=== PATIENT | female | born 2000 | race African-American/Black ===

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

== ENCOUNTER 2020-01-26 11:11 | Emergency (ER) | payer BC, SELFPAY ==
--- NOTE | ~2020-01-26 | CT_ITS ---
EXAMINATION: CT abdomen pelvis w con DATE: 01/26/2020 12:40 INDICATION: Right abdominal pain. Nausea. TECHNIQUE: Computed tomography (CT) of the abdomen and pelvis was performed with 100 mL Omnipaque 350 intravenous contrast. Automated exposure control and iterative reconstruction technique were employe d. The dose-length product was 1170.46 mGy-cm. COMPARISON: None. FINDINGS: The visualized portions of the lung bases are clear without pneumonia or pleural effusion. The heart size is normal. No pericardial effusion. The liver, gallbladder, spleen, pancreas, adrenal glands, and kidneys are normal. There are no dilated loops of bowel. The appendix is normal. There ar e no pathologically enlarged lymph nodes. There is no free intraperitoneal fluid. There is mild lumba r spondylosis. IMPRESSION: 1. No etiology for the patient's symptoms. Reviewed, dictated and finalized at location A.
[2020-01-26 11:20] VITALS: BP 141/79; PULSE 58; RESP 18; TEMP 37; O2SAT 100
--- NOTE | 2020-01-26 11:29 | ED.ABDPAIN ---
HPI - Abdominal Pain General Chief Complaint: Abdominal Pain <TAMEKA Hoffman Last Filed: 01/26/20 13:41> Stated Complaint: Abd pain <TAMEKA Hoffman Last Filed: 01/26/20 13:41> Time Seen by Provider: 01/26/20 11:14 <TAMEKA Hoffman Last Filed: 01/26/20 13:41> Source: patient <TAMEKA Hoffman Last Filed: 01/26/20 13:41> Mode of arrival: ambulatory <TAMEKA Hoffman Last Filed: 01/26/20 13:41> Limitations: no limitations <TAMEKA Hoffman Last Filed: 01/26/20 13:41> History of Present Illness HPI narrative: This is a 19 year old female that presents to the ER for abdominal pain x 3 days. Reports intermittent sharp pains around her umbilicus. Reports pain on her right side as well. Associated with nausea. Reports she has had some loose stools the last couple of days. Denies fever, vomiting, hematochezia, dysuria or hematuria. <TAMEKA Hoffman Last Filed: 01/26/20 13:41> Related Data Home Medications: Home Medications Medication Instructions Recorded Confirmed valacyclovir 500 mg PO DAILY 07/29/19 10/26/19 <TAMEKA Hoffman Last Filed: 01/26/20 13:41> Allergies/Adverse Reactions: Allergies Allergy/AdvReac Type Severity Reaction Status Date / Time amoxicillin Allergy Unknown HIVE LIKE Verified 10/26/19 11:52 RASH sulfamethoxazole Allergy Unknown HIVES Verified 10/26/19 11:52 trimethoprim Allergy Unknown HIVES Verified 10/26/19 11:52 <TAMEKA Hoffman Last Filed: 01/26/20 13:41> Review of Systems Review of Systems: Narrative: CONSTITUTIONAL: Denies fever GASTROINTESTINAL: Reports abdominal pain, nausea, diarrhea. Denies vomiting GENITOURINARY: Denies dysuria or hematuria. <TAMEKA Hoffman Last Filed: 01/26/20 13:41> All systems reviewed & are unremarkable except as noted in HPI and below <Etelvina Busby PA-C - Last Filed: 01/26/20 13:41> [facility] Past Medical History Medical History: Medical History (Updated 01/26/20 @ 13:40 by Etelvina Busby PA-C) History of herpes genitalis <Etelvina Busby PA-C - Last Filed: 01/26/20 13:41> Social History Social History: Social History (Updated 01/26/20 @ 11:34 by Etelvina Busby PA-C) Smoking status: Never smoker Substance use type: marijuana <Etelvina Busby PA-C - Last Filed: 01/26/20 13:41> Exam Narrative: Exam Narrative: GENERAL: Well-appearing, obese, and in no acute distress. HEAD: Normocephalic, atraumatic. EYES: EOMI. CHEST: Clear to auscultation. No respiratory distress. No wheezes rales or rhonchi HEART: Regular rate and rhythm. No murmur heard. Normal peripheral pulses. ABDOMEN: Soft, nondistended, normal active bowel sounds. Tender to palpation of the RLQ, without guarding EXTREMITIES: Normal range of motion. No edema. SKIN: Warm, dry, no rash. NEURO: No focal deficits. Alert and oriented x3. PSYCH: Normal mood and affect <Etelvina Busby PA-C - Last Filed: 01/26/20 13:41> Course Vital Signs Vital signs: Vital Signs Temperature 98.6 F 01/26/20 11:20 Pulse Rate 58 L 01/26/20 11:20 Respiratory Rate 18 01/26/20 11:20 Blood Pressure 141/79 H 01/26/20 11:20 Pulse Oximetry 100 01/26/20 11:20 Temperature 98.6 F 01/26/20 11:20 Pulse Rate 68 01/26/20 14:04 Respiratory Rate 16 01/26/20 14:04 Blood Pressure 158/84 H 01/26/20 14:04 Pulse Oximetry 97 01/26/20 14:04 <Etelvina Busby PA-C - Last Filed: 01/26/20 13:41> Vital Signs Temperature 98.6 F 01/26/20 11:20 Pulse Rate 58 L 01/26/20 11:20 Respiratory Rate 18 01/26/20 11:20 Blood Pressure 141/79 H 01/26/20 11:20 Pulse Oximetry 100 01/26/20 11:20 Temperature 98.6 F 01/26/20 11:20 Pulse Rate 68 01/26/20 14:04 Respiratory Rate 16 01/26/20 14:04 Blood Pressure 158/84 H 01/26/20 14:04 Pulse Oximetry 97 01/26/20 14:04 <Kelsy Teague MD - Last Filed: 01/26/20 19
[2020-01-26 11:43] LABS: Basophils Percent Auto 0.5 % (0.2-1.2); Eosinophils Absolute Auto 0.2 K/mm3 (0-0.3); Eosinophils Percent Auto 3.6 % (0-4.4); Hematocrit 39.3 % (37.0-47.0); Hemoglobin 12.7 g/dL (12.0-15.0); Immature Granulocyte Absolute 0.01 K/mm3 (0.00-0.031); Immature Granulocyte Percent A 0.2 % (0-0.5); Lymphocytes Absolute Auto 2.73 K/mm3 (0.9-3.2); Lymphocytes Percent Auto 49.2 % (18.3-44.2); Mean Corpuscular HGB Conc 32.3 g/dl (32-36); Mean Corpuscular Hemoglobin 29.4 pg (26-34); Mean Platelet Volume 11.5 fl (7.4-10.4); Monocytes Absolute Auto 0.5 K/mm3 (0.1-0.6); Monocytes Percent Auto 8.5 % (2.6-8.5); Neutrophils Absolute Auto 2.1 K/mm3 (1.3-6.7); Platelet Count Result 308 k/mm3 (150-375); Red Blood Count 4.32 M/mm3 (4.2-5.4); Red Cell Distribution Width 13.5 % (11.5-14.5); White Blood Count 5.6 K/mm3 (4.5-10.0)
[2020-01-26] MEDS: SODIUM CHLORIDE 0.9% IV 500 ML 999 ML IV CONT (11:48)
[2020-01-26] MEDS: FAMOTIDINE 20 MG/2 ML VIAL IV PUSH (11:49)
[2020-01-26 11:57] LABS: Add Urine Microscopic? NO; Appearance Urine Clear (Clear); Bilirubin Urine Negative (Negative); Blood Urine Negative (Negative); Color Urine Yellow (Yellow); Glucose Urine UA Negative (Negative); Ketones Urine Negative (Negative); Leukocyte Esterase Ur Negative LEU/UL (Negative); Nitrate Urine Negative (Negative); Protein Urine Negative (Negative); Specific Grav Ur 1.024 (1.001-1.035); Urobilinogen Urine Negative mg/dL (<2.0)
[2020-01-26 12:15] LABS: Alanine Aminotransferase 10 U/L (4-35); Albumin Level 4.2 g/dL (3.7-5.6); Alkaline Phosphatase 82 U/L (45-116); Aspartate Amino Transferase 21 U/L (14-36); Bilirubin,Total 0.6 mg/dL (0.2-1.3); Blood Urea Nitrogen 11 mg/dL (8-21); Calcium 9.2 mg/dL (8.9-10.7); Carbon Dioxide 28 mmol/L (22-30); Chloride 103 mmol/L (98-107); Estimated Glomerular Filt Rate > 60; Glucose 96 mg/dL (65-105); Lipase 62 U/L (23-300); Potassium 3.8 mmol/L (3.4-5.0); Sodium 135 mmol/L (134-143)
[2020-01-26 14:04] VITALS: BP 158/84; PULSE 68; RESP 16; O2SAT 97
== END 2020-01-26 14:00 | disposition home or self-care (01) ==
PROVIDERS: Physician Assistant; Emergency Provider Emergency Medicine
DX: R10.33 Periumbilical pain (principal)
CPT/HCPCS: 36415; 74177; 80053; 81003; 81025; 83690; 85025; 96365; 96375; 99284; J0131; J7040; Q9967

== ENCOUNTER 2021-01-25 14:28 | Outpatient (CLI) | payer BC, SELFPAY ==
[2021-01-25 16:26] LABS: Hepatitis B Surface Antigen Negative (Negative)
[2021-01-25 16:42] LABS: HIV 1/2 Ab P24 Ag Result Negative (Negative)
[2021-01-25 16:43] LABS: Hepatitis C Virus Antibody Negative (Negative)
[2021-01-26 10:20] LABS: Rapid Plasma Reagin Non-Reactive (NonReactive)
== END 2021-01-25 14:29 | disposition home or self-care (01) ==
PROVIDERS: PCP Nurse Practitioner Family; Visit Provider Obstetrics & Gynecology
DX: Z11.3 Encounter for screening for infections with a predominantly sexual mode of transmission (principal)
CPT/HCPCS: 36415; 86592; 86703; 86803; 87340; G0432

== ENCOUNTER 2021-09-21 11:05 | Emergency (ER) | payer BC, SELFPAY ==
[2021-09-21 11:15] VITALS: BP 135/86; PULSE 85; RESP 16; TEMP 35.9; O2SAT 100
--- NOTE | 2021-09-21 11:18 | ED.URI ---
HPI - URI/Sore Throat General Chief Complaint: Upper Respiratory Infection Stated Complaint: Cough Time Seen by Provider: 09/21/21 11:35 Source: patient and RN notes reviewed Mode of arrival: ambulatory Limitations: no limitations History of Present Illness HPI Narrative: 21-year-old female presents with concern for cough, body aches, stuffy nose and chest tightness. She reports a history of asthma, has not needed albuterol inhaler for quite some time. Reports her sister tested positive for Covid yesterday. She denies any [id number] intervention. MD elicited complaint: cough Related Data Allergies Allergy/AdvReac Type Severity Reaction Status Date / Time amoxicillin Allergy Unknown HIVE LIKE Verified 04/25/21 09:59 RASH sulfamethoxazole Allergy Unknown HIVES Verified 04/25/21 09:59 trimethoprim Allergy Unknown HIVES Verified 04/25/21 09:59 Penicillins Allergy Unknown Verified 04/25/21 09:59 Review of Systems Review of Systems: CONSTITUTIONAL: Denies malaise, chills, sweats, or fever. EYES: Denies visual changes, redness, or discharge. ENT: Reports congestion. Denies nasal congestion, sinus pain, otalgia and sore throat. CARDIOVASCULAR: Denies chest pain, palpitations, or edema. RESPIRATORY: Reports cough. Denies dyspnea. GASTROINTESTINAL: Denies abdominal pain, nausea, vomiting, diarrhea SKIN: Denies rash or itching. MUSCULOSKELETAL: Reports myalgia. NEUROLOGIC: Denies headache. All systems reviewed & are unremarkable except as noted in HPI and below PMFSH Past Medical History Medical History HSV (herpes simplex virus) infection Type 2 Family History Family History Father Asthma Diabetes mellitus Hypertension Heart problem Mother Cancer Diabetes mellitus Hypertension Anxiety Heart problem Sibling Asthma Diabetes mellitus Anxiety Social History Social History Smoking status: Never smoker Alcohol intake: current Substance use: current Substance use type: marijuana Comments At time of signature, agree with nursing past medical, surgical, social and family history. There is no relevant family history pertinent to the presenting complaint Exam Narrative: GENERAL: Well-appearing, well-nourished, and in no acute distress. HEAD: Normocephalic EYES: PERRLA, conjunctivae clear ENT: Nares clear, clear discharge. Mucous membranes moist. TM pearly logan with dull light reflex bilaterally; no tragal tenderness. Oropharynx not erythematous without lesions. Tonsils not enlarged and without exudate, no drooling, no hoarseness, no trismus, uvula midline. NECK: Supple. No lymphadenopathy CHEST: Clear to auscultation, breath sounds equal. No wheezing, rhonchi, rales, or stridor. No respiratory distress, speaks in full sentences. HEART: Regular rate and rhythm. No murmur heard. SKIN: Warm, dry, no rash. NEURO: Alert and oriented x3. PSYCH: Normal mood and affect Course Course Emergency Course: Patient is aware of diagnosis, understands and agrees to treatment plan. Anticipatory guidance given. Patient agrees to follow-up as directed and is aware of reasons to seek care at the emergency department. Portions of this record may have been created with voice recognition software Level of Care: Express Care Visit Vital Signs Vital signs: Vital Signs Temperature 96.7 F L 09/21/21 11:15 Pulse Rate 85 09/21/21 11:15 Respiratory Rate 16 09/21/21 11:15 Blood Pressure 135/86 09/21/21 11:15 Pulse Oximetry 100 09/21/21 11:15 Temperature 96.7 F L 09/21/21 11:15 Pulse Rate 85 09/21/21 11:15 Respiratory Rate 16 09/21/21 11:15 Blood Pressure 135/86 09/21/21 11:15 Pulse Oximetry 100 09/21/21 11:15 Reviewed. MDM - URI/Sore Throat MDM Narrative Medical decision making narrative: Differenti
== END 2021-09-21 11:59 | disposition home or self-care (01) ==
PROVIDERS: Emergency Provider Nurse Practitioner; PCP Nurse Practitioner Family
DX: U07.1 COVID-19 (principal)
CPT/HCPCS: 87426; 99213; C9803; G0463

== ENCOUNTER 2021-12-02 06:14 | Emergency (ER) | payer BC, SELFPAY ==
--- NOTE | ~2021-12-02 | US_ITS ---
EXAMINATION: US abdomen limited DATE: 12/02/2021 07:30 INDICATION: Right upper quadrant abdominal pain. Nausea and vomiting. TECHNIQUE: Multiple grayscale and Doppler ultrasound images of the abdomen were obtained. COMPARISON: None FINDINGS: The pancreatic head and body are normal in appearance. The pancreatic tail is obscured by shadowing gas in the stomach. Liver has normal echogenicity and contour, with a smooth surface. No liver lesion identified. No intrahepatic biliary duct dilation suspected. Portal venous flow was seen in the hepa topetal, normal direction and has normal Doppler waveform. Visualized proximal to mid inferior vena c maria de jesus is normal. The gallbladder is normal in appearance. There is no cholelithiasis. The common bile duct measures 5 mm, which is normal. Sonographic Cruz sign was reported as negative by the sonograp her.Visualized portion of the right kidney demonstrates normal echogenicity and contour with no hydro nephrosis. IMPRESSION: 1. Normal right upper quadrant ultrasound. Reviewed, dictated and finalized at location A.
[2021-12-02 06:20] VITALS: BP 153/96; PULSE 70; RESP 18; TEMP 36.6; O2SAT 99
[2021-12-02 07:05] LABS: Basophils Percent Auto 0.4 % (0.2-1.2); Eosinophils Absolute Auto 0.1 K/mm3 (0-0.3); Eosinophils Percent Auto 1.4 % (0-4.4); Hematocrit 39.5 % (37.0-47.0); Hemoglobin 12.6 g/dL (12.0-15.0); Immature Granulocyte Absolute 0.01 K/mm3 (0.00-0.031); Immature Granulocyte Percent A 0.2 % (0-0.5); Lymphocytes Absolute Auto 2.87 K/mm3 (0.9-3.2); Lymphocytes Percent Auto 56.3 % (18.3-44.2); Mean Corpuscular HGB Conc 31.9 g/dl (32-36); Mean Corpuscular Hemoglobin 29.2 pg (26-34); Mean Corpuscular Volume 91.6 fl (80-100); Mean Platelet Volume 11.2 fl (7.4-10.4); Monocytes Absolute Auto 0.6 K/mm3 (0.1-0.6); Neutrophils Absolute Auto 1.6 K/mm3 (1.3-6.7); Neutrophils Percent Auto 30.7 % (45.5-73.1); Platelet Count Result 252 k/mm3 (150-375); Red Blood Count 4.31 M/mm3 (4.2-5.4); Red Cell Distribution Width 13.3 % (11.5-14.5); White Blood Count 5.1 K/mm3 (4.5-10.0)
[2021-12-02 07:10] LABS: Alanine Aminotransferase 22 U/L (4-35); Albumin Level 4.2 g/dL (3.5-5.1); Alkaline Phosphatase 85 U/L (38-126); Anion Gap 5 mmol/L (8-16); Aspartate Amino Transferase 32 U/L (14-36); Bilirubin,Total 0.4 mg/dL (0.2-1.3); Blood Urea Nitrogen 11 mg/dL (7-17); Calcium 8.8 mg/dL (8.4-10.2); Carbon Dioxide 25 mmol/L (22-30); Chloride 107 mmol/L (98-107); Estimated Glomerular Filt Rate > 60; Glucose 102 mg/dL (65-110); Lipase 50 U/L (23-300); Sodium 137 mmol/L (137-145)
[2021-12-02 07:11] LABS: Add Urine Microscopic? YES; Appearance Urine Cloudy (Clear); Bilirubin Urine Negative (Negative); Blood Urine Negative (Negative); Color Urine Yellow (Yellow); Glucose Urine UA Negative (Negative); Ketones Urine Negative (Negative); Leukocyte Esterase Ur Trace LEU/UL (Negative); Mucus Urine Rare /lpf; Nitrate Urine Negative (Negative); Protein Urine Negative (Negative); RBC Urine 0-2 /hpf (0-2); Specific Grav Ur 1.024 (1.001-1.035); Squamous Epithelial Cell Urine Moderate /hpf (Few)
[2021-12-02 07:13] LABS: Pregnancy On Board Control Positive; Urine Pregnancy Test Negative
[2021-12-02 07:14] LABS: Lactic Acid Reflex 0.6 mmol/L (0.7-2.1)
--- NOTE | 2021-12-02 07:21 | PC.NURSE ---
Report given to Myesha at bedside.
[2021-12-02 07:27] LABS: Beta HCG Quantitative < 2.39 mIU/ML
[2021-12-02] MEDS: ONDANSETRON INJ 4 MG/2 ML VIAL IV PUSH (07:42)
[2021-12-02] MEDS: MORPHINE SULFATE (*CRX) 4 MG/ML INJ IV PUSH (07:42)
[2021-12-02 08:02] VITALS: BP 143/95; PULSE 63; RESP 15; O2SAT 100
[2021-12-02 08:42] VITALS: BP 142/95; PULSE 58; RESP 16; O2SAT 99
== END 2021-12-02 08:45 | disposition home or self-care (01) ==
PROVIDERS: Emergency Medicine; PCP Nurse Practitioner Family
DX: R10.11 Right upper quadrant pain (principal)
CPT/HCPCS: 36415; 76705; 80053; 81001; 81025; 83605; 83690; 84702; 85025; 96374; 96375; 99284; J2270; J2405

== ENCOUNTER 2021-12-14 07:32 | Outpatient (CLI) | payer BC, SELFPAY ==
--- NOTE | ~2021-12-14 | NM_ITS ---
EXAMINATION: NM hepatobiliary wo pharm DATE: 12/14/2021 13:44 INDICATION: Disease of gallbladder COMPARISON: None. TECHNIQUE: 5 mCi Tc-99m mebrofenin (Choletec) was administered intravenously. Scintigraphic images o f the abdomen were obtained for one hour. At the 1 hour time point, the patient drank 8 oz Ensure, an d imaging was continued for 60 minutes. Gallbladder ejection fraction was calculated by the technolog ist. FINDINGS: There is normal clearance of radiotracer from the blood pool. There is homogeneous tracer u ptake by the liver. Activity progresses to the bowel and gallbladder. The gallbladder ejection fract ion (GBEF) is 70%. Note that with this technique, normal GBEF >= 33%. IMPRESSION: 1. Normal hepatobiliary scan. Reviewed, dictated and finalized at location A.
== END 2021-12-14 07:33 | disposition home or self-care (01) ==
PROVIDERS: PCP Nurse Practitioner Family; Visit Provider Nurse Practitioner Family
DX: K82.9 Disease of gallbladder, unspecified (principal)
CPT/HCPCS: 78226; A9537

== ENCOUNTER 2022-10-09 19:39 | Emergency (ER) | payer OTHER, SELFPAY ==
[2022-10-09 19:51] VITALS: BP 135/73; PULSE 85; RESP 16; TEMP 36.3; O2SAT 100
--- NOTE | 2022-10-09 20:10 | ED.URI ---
HPI - URI/Sore Throat General Chief Complaint: Upper Respiratory Infection Stated Complaint: swollen tonsils, sore throat Time Seen by Provider: 10/09/22 20:10 Source: patient, RN notes reviewed and old records reviewed Mode of arrival: ambulatory Limitations: no limitations History of Present Illness HPI Narrative: 22 year old female presents to [facility] care with complaints of sore throat which started this morning and progressively increased in intensity since this morning. Patient reports no cough, no fevers, no ear pain or any headache reported, just sore throat. Patient reports that sister and niece both ill with sore throats also and tested positive for strep 2 days ago. MD elicited complaint: sore throat Pertinent past history: asthma Onset (ago): day(s) (today) Pain scale (0-10): 4 Treatments prior to arrival: none Related Data Allergies Allergy/AdvReac Type Severity Reaction Status Date / Time amoxicillin Allergy Unknown HIVE LIKE Verified 04/25/21 09:59 RASH sulfamethoxazole Allergy Unknown HIVES Verified 04/25/21 09:59 trimethoprim Allergy Unknown HIVES Verified 04/25/21 09:59 Penicillins Allergy Unknown Verified 04/25/21 09:59 Review of Systems Review of Systems: CONSTITUTIONAL: Denies malaise, chills, sweats, or fever. EYES: Denies visual changes, redness, or discharge. ENT: Reports rhinorrhea, congestion,no sinus pain, no otalgia positive for sore throat. CARDIOVASCULAR: Denies chest pain, palpitations, or edema. RESPIRATORY: Reports no cough.? Denies dyspnea. GASTROINTESTINAL: Denies abdominal pain, nausea, vomiting, diarrhea SKIN: Denies rash or itching. MUSCULOSKELETAL: Denies myalgia. NEUROLOGIC: Denies headache. All systems reviewed & are unremarkable except as noted in HPI and below PMFSH Past Medical History Medical History HSV (herpes simplex virus) infection Type 2 Family History Family History Father Asthma Diabetes mellitus Hypertension Heart problem Mother Cancer Diabetes mellitus Hypertension Anxiety Heart problem Sibling Asthma Diabetes mellitus Anxiety Social History Social History Smoking status: Never smoker Alcohol intake: current Substance use: current Substance use type: marijuana Comments At time of signature, agree with nursing past medical, surgical, social and family history. There is no relevant family history pertinent to the presenting complaint Exam Narrative: GENERAL: Well-appearing, well-nourished, and in no acute distress. HEAD: Normocephalic EYES: PERRLA, conjunctivae clear ENT: Nares clear, turbinates edematous and erythematous, clear discharge. Mucous membranes moist. TM pearly logan with dull light reflex bilaterally; no tragal tenderness. Oropharynx erythematous without lesions. Tonsils red enlarged and without exudate, no drooling, no hoarseness, no trismus, uvula midline. NECK: Supple. lymphadenopathy CHEST: Clear to auscultation, breath sounds equal. No wheezing, rhonchi, rales, or stridor. No respiratory distress, speaks in full sentences.SAO2 100% on room air HEART: Regular rate and rhythm. No murmur heard. SKIN: Warm, dry, no rash. NEURO: Alert and oriented x3. PSYCH: Normal mood and affect Course Course Emergency Course: Patient is aware of diagnosis, understands and agrees to treatment plan.? Anticipatory guidance given.? Patient agrees to follow-up as directed and is aware of reasons to seek care at the emergency department. Portions of this record may have been created with voice recognition software Level of Care: Express Care Visit Vital Signs Vital signs: Vital Signs Temperature 36.3 C L 10/09/22 19:51 Pulse Rate 85 10/09/22 19:51 Respiratory Rate 16 10/09/22 19:51 Blood Pressure 135/73
== END 2022-10-09 20:23 | disposition home or self-care (01) ==
PROVIDERS: Emergency Provider Registered Nurse; PCP Nurse Practitioner Family
DX: J02.0 Streptococcal pharyngitis (principal)
CPT/HCPCS: 87880; 99213; G0463

== ENCOUNTER 2022-11-19 13:19 | Emergency (ER) | payer OTHER, SELFPAY ==
[2022-11-19 13:27] VITALS: BP 142/90; PULSE 83; RESP 19; TEMP 36.5; O2SAT 100
[2022-11-19 13:41] LABS: Basophils Percent Auto 0.5 % (0.2-1.2); Eosinophils Percent Auto 0.4 % (0-4.4); Hematocrit 40.2 % (37.0-47.0); Hemoglobin 12.8 g/dL (12.0-15.0); Immature Granulocyte Absolute 0.01 K/mm3 (0.00-0.031); Immature Granulocyte Percent A 0.2 % (0-0.5); Lymphocytes Absolute Auto 1.73 K/mm3 (0.9-3.2); Lymphocytes Percent Auto 30.7 % (18.3-44.2); Mean Corpuscular HGB Conc 31.8 g/dl (32-36); Mean Corpuscular Volume 91.2 fl (80-100); Mean Platelet Volume 10.1 fl (7.4-10.4); Monocytes Absolute Auto 0.5 K/mm3 (0.1-0.6); Neutrophils Absolute Auto 3.4 K/mm3 (1.3-6.7); Neutrophils Percent Auto 60.2 % (45.5-73.1); Platelet Count Result 327 k/mm3 (150-375); Red Blood Count 4.41 M/mm3 (4.2-5.4); Red Cell Distribution Width 13.6 % (11.5-14.5); White Blood Count 5.6 K/mm3 (4.5-10.0)
[2022-11-19 13:51] LABS: Alanine Aminotransferase 18 U/L (6-35); Albumin Level 4.5 g/dL (3.5-5.1); Alkaline Phosphatase 89 U/L (38-126); Anion Gap 9 mmol/L (8-16); Aspartate Amino Transferase 23 U/L (14-36); Bilirubin,Total 0.5 mg/dL (0.2-1.3); Blood Urea Nitrogen 11 mg/dL (7-17); Calcium 9.1 mg/dL (8.4-10.2); Carbon Dioxide 22 mmol/L (22-30); Chloride 108 mmol/L (98-107); Estimated Glomerular Filt Rate > 60; Glucose 105 mg/dL (65-110); Lipase 36 U/L (23-300); Potassium 3.8 mmol/L (3.4-5.0); Sodium 139 mmol/L (137-145)
[2022-11-19 13:54] VITALS: BP 150/78; BP 154/101; BP 168/96; PULSE 63; PULSE 72; PULSE 76
[2022-11-19 13:59] VITALS: BP 168/96; PULSE 75; RESP 18; O2SAT 98
--- NOTE | 2022-11-19 14:10 | ED.NAVMDI ---
HPI - Nausea/Vomiting/Diarrhea General Chief complaint: Nausea/Vomiting/Diarrhea Stated complaint: N/V Time Seen by Provider: 11/19/22 13:53 History of Present Illness HPI Narrative: Patient is a 22 year old female here for evaluation of nausea and vomiting over the past several hours. Patient states she is unable to tolerate any p.o.. She has had values last night. Positive sick contact, patient's niece presents experiencing similar symptoms. She reports abdominal cramping when she vomits. No fevers or chills, diarrhea or constipation. No history of abdominal surgeries. Related Data Allergies Allergy/AdvReac Type Severity Reaction Status Date / Time amoxicillin Allergy Unknown HIVE LIKE Verified 11/19/22 13:54 RASH sulfamethoxazole Allergy Unknown HIVES Verified 11/19/22 13:54 trimethoprim Allergy Unknown HIVES Verified 11/19/22 13:54 Penicillins Allergy Unknown Verified 11/19/22 13:54 Review of Systems Review of Systems: Gen.: Denies fevers or chills Eyes: Denies eye pain or visual change ENT: Denies congestion Respiratory: Denies shortness of breath or cough CV: Denies chest pain or palpitations GI: Reports abdominal cramping nausea and vomiting denies burning, urgency, frequency or hematuria Musculoskeletal: Denies back pain or muscle pain Neuro: Denies numbness, tingling, weakness or focal weakness Skin: Denies rash Except as documented, all other systems reviewed and negative PMFSH Past Medical History Medical History HSV (herpes simplex virus) infection Type 2 Family History Family History Father Asthma Diabetes mellitus Hypertension Heart problem Mother Cancer Diabetes mellitus Hypertension Anxiety Heart problem Sibling Asthma Diabetes mellitus Anxiety Social History Social History Smoking status: Never smoker Alcohol intake: current Substance use: current Substance use type: marijuana Exam Narrative: APPEARANCE: Well appearing, no pain in distress, well-nourished. Head: Normocephalic and atraumatic. EYES: PERRLA/EOMI, conjunctivae clear NOSE: No nasal drainage EARS: External ear normal in appearance THROAT: Oropharynx is clear. Mucous membranes are moist. NECK: Supple. No adenopathy, no masses. RESPIRATORY: Airway patent, respirations nonlabored. Clear to auscultation bilaterally, no rales, rhonchi, wheezing. CARDIOVASCULAR: Regular rate and rhythm without murmurs, rubs, or gallops. ABDOMINAL: Normoactive bowel sounds. Soft, nontender, nondistended. No rebound tenderness or guarding. MUSCULOSKELETAL: Extremities are warm and well-perfused. Moves all extremities well. No edema. NEURO: Normal speech. No focal neurologic deficits. SKIN: Skin is warm and dry. No rashes. PSYCHIATRIC: Normal affect/mood.. Course Vital Signs Vital signs: Vital Signs Temperature 97.7 F 11/19/22 13:27 Pulse Rate 83 11/19/22 13:27 Respiratory Rate 19 11/19/22 13:27 Blood Pressure 142/90 H 11/19/22 13:27 Pulse Oximetry 100 11/19/22 13:27 Oxygen Delivery Room Air 11/19/22 13:27 Temperature 97.7 F 11/19/22 13:27 Pulse Rate 99 11/19/22 17:46 Respiratory Rate 18 11/19/22 17:46 Blood Pressure 168/84 H 11/19/22 17:46 Pulse Oximetry 100 11/19/22 17:46 Oxygen Delivery Room Air 11/19/22 13:27 MDM - Nausea/Vomiting/Diarrhea MDM Narrative Medical decision making narrative: 22-year-old female here for evaluation of nausea and vomiting over the past day onset after eating rallys last evening. Vital signs are normal, no abdominal tenderness on exam. Patient was given fluids, Pepcid, and Zofran with marked improvement of her symptoms, able to tolerate p.o. and feeling much better. Basic labs are unremarkable. Lipase is normal. Urine negative, UA without e
[2022-11-19] MEDS: FAMOTIDINE 20 MG/2 ML VIAL IV PUSH (14:36)
[2022-11-19] MEDS: LACTATED RINGERS 1,000 ML 999 ML IV CONT (14:36)
[2022-11-19] MEDS: ONDANSETRON INJ 4 MG/2 ML VIAL IV PUSH (14:36)
[2022-11-19 16:59] LABS: Appearance Urine Clear (Clear); Bacteria Urine None Seen /hpf; Bilirubin Urine Negative (Negative); Blood Urine Negative (Negative); Color Urine Yellow (Yellow); Glucose Urine UA Negative (Negative); Ketones Urine Negative (Negative); Leukocyte Esterase Ur Negative LEU/UL (Negative); Nitrate Urine Negative (Negative); Non Pathogenic Casts 0-2; Protein Urine 1+ mg/dL (Negative); RBC Urine 0-2 /hpf (0-2); Specific Grav Ur 1.024 (1.001-1.035); Squamous Epithelial Cell Urine None seen /hpf (Few); Urobilinogen Urine 0.2 mg/dL (<2.0); WBC Urine 0-5 /hpf; pH Urine 7.5 (5.0-9.0)
[2022-11-19 17:23] LABS: Add Urine Microscopic? YES
[2022-11-19 17:46] VITALS: BP 168/84; PULSE 99; RESP 18; O2SAT 100
[2022-11-19 17:49] LABS: Pregnancy On Board Control Positive; Urine Pregnancy Test Negative
== END 2022-11-19 17:54 | disposition home or self-care (01) ==
PROVIDERS: Emergency Medicine; Emergency Provider Physician Assistant; PCP Nurse Practitioner Family
DX: K52.9 Noninfective gastroenteritis and colitis, unspecified (principal)
CPT/HCPCS: 36415; 80053; 81001; 81025; 83690; 85025; 96361; 96374; 96375; 99284; J2405; J7120

== ENCOUNTER 2025-01-23 09:04 | Emergency (ER) | payer SELFPAY ==
--- NOTE | ~2025-01-23 | XR_ITS ---
Portable chest x-ray Comparison: None Clinical History: Dizziness Findings: Lungs are clear, without focal consolidation or pleural effusion. Cardiomediastinal silho uette is unremarkable. Bones and soft tissues are unremarkable. Impression: Normal chest. Reviewed, dictated and finalized at location . Impression: Normal chest.
--- OUTSIDE RECORDS SUMMARY | 2025-01-23 09:10 | XMS_ITS | Clinical Summary ---
Author Organization [facility] Address [address] [place] [address] Phone Care Team Providers Care Oven Technician Name Role Phone Nidia Herrera APRN, CNP Primary Care Provider [phone] Active Problems Problem Noted Date Diagnosed Date Adjustment disorder with depressed mood 12/01/19 20 Immunizations Immunization Administration Dates Next Due Covid-19, Mrna, Lnp-s, Pf, 30 Mcg/0.3 Ml Dose (P fizer) 01/03/2021,12/14/2020 Family History Medical History Relation Name Comments ADD / ADHD Father ADD / ADHD Mother Relation Name Status Comments Father Mother Social History Tobacco Use Types Packs/Day Years Used Date Smoking Tobacco: Never Assessed PHQ-2 Answer Date Recorded Total Score - Questions 1-9 7 11/15 Comments Unknown Sex and Gender Information Value Date Recorded Sex Assigned at Not on file Legal Sex Female 10:26 AM CDT Gender Identity Not on file Sexual Orientation Not on file Plan of Treatment Health Maintenance Due Date Last Done Comments Hepatitis C Virus (HCV) Screening 2000 Pap Smear 2021 Influenza Immunization (#1) 05/18/202411/16, 06/30/2013, 06/04/2012, Additional history exists SARS-COV-2 Immunization ( season) 2024 10/04/2022, 01/25/2022, 01/04/2022, Additional history exists Respiratory Syncytial Virus (RSV) Immunization (Adult) (1 - 1-dose 75+ series) 2075 Hepatitis B Immunization Completed 001, 2000, 2000 Pneumococcal Immunization Combined Aged Out 01/31/2001, 2000 No longer eligibl e based on patient's age to complete this topic DTaP/Tdap/Td Immunization Discontinued 2010, 04/28/2005, 04/18/2002, Additional history exists TdaP Immunization Completed 02/17/2011 Human Papillomavirus (HPV) Immunization Completed 10/14/2012, 06/04/2012, 04/03/2012 Meningococcal Immunization (ACWY) Completed 12/06/2016, 10/30/2011 Rotavirus Immunization Aged Out No lo nger eligible based on patient's age to complete this topic Insurance MEDICAID [place] Care Teams Oven Technician Relationship Specialty Start Date End Date Nidia Herrera APRN, CLEARANCE REPRESENTATIVE [address] [place] [address] PCP - General Family Medicine 10/04/22
--- OUTSIDE RECORDS SUMMARY | 2025-01-23 09:10 | XMS_ITS | Data Portability ---
Author Organization [facility] FRITZSonia Address [address] [place] [address] Care Team Providers Care Back Sewer Name Role Phone ZAMORA, NIDIA Primary Care Provider Unavailabl e Assessment No assessment recorded. Plan of Treatment Reminders Order Date Submit Date Provider Last Modified By Organization Details Last Modified Time Details Appointments None recorde d. Lab vaginal pathoge ns panel, KRISTIAN+pro be, vaginal fluid 2023 024 [facility], [address], [address], [place], [address], 4 07:17:13 vaginal pathoge ns panel, KRISTIAN+pro be, vaginal fluid 2022 023 [facility], [address], [address], [place], [address], 3 11:14:29 cytolog y report, thin prep, smear or scrapin g, cervica l or vaginal 2022 023 [facility], [address], [address], [place], [address], 3 11:40:34 rapid SARS CoV 2 Ag, QL IA, respira tory specime n 2022 023 In-Office Order, Internal Use Only DO Not Attach Compendium DO Not Attach Compendium, Do Not Delete/merge, [id number] 3 14:41:21 rapid flu (A+B) 2022 023 In-Office Order, Internal Use Only DO Not Attach Compendium DO Not Attach Compendium, Do Not Delete/merge, [id number] 3 14:41:22 Referral None recorde d. Procedures None recorde d. Surgeries None recorde d. Imaging MRI, thoraci c spine, w/o contras t 2022 023 [email or web address] [facility] (Radiology), [address] [place], [address], 3 11:15:42 Medication Orders NuvaRin g 0.12 mg-0.01 5 mg/24 hr vaginal 2022 023 [facility]/Pharmacy #[id number], [address] [place], [address], 3 12:00:17 Medrol (Michael) 4 mg tablets in a dose pack 2022 023 [facility]/Pharmacy #[id number], [address] [place], [address], 3 11:23:36 triamci nolone acetoni de 0.1 % topical cream 2022 023 [facility]/Pharmacy #[id number], [address] [place], [address], 3 14:14:57 valacyc lovir 500 mg tablet 2022 023 [facility]/Pharmacy #[id number], [address] [place], [address], 3 14:38:54 NuvaRin g 0.12 mg-0.01 5 mg/24 hr vaginal 2022 023 [facility]/Pharmacy #[id number], [address], [place], [address], 14:38:54 Patient TargetsNo targets recorded. Patient Instructions Encounter Date Encounter Id Patient Instructions Last Modified By Organization Details Last Modified Time 10/11/2022 [id number] Quitting Tobacco: Care Instructions [email or web address] Not available 10/11/2022 14:38:52 A healthy lifestyle: care instructions [email or web address] Not available 10/11/2022 14:38:51 05/08/2023 [id number] When You Want to Lose Weight: Care Instructions Not available 05/08/2023 11:37:06 A healthy lifestyle: care instructions Not available 05/08/2023 11:37:06 healthy upper back: exercises Not available 05/08/2023 11:37:06 - Avoid heavy lifting and over-exertion. - Avoid bed-rest do some gentle stretching and continue with normal activities. - Use ice to relieve pain, 15 minutes every 2 4 hours. - Use heat to relax muscles, 15 minutes every 2 4 hours. - Sleep on a firm surface and avoid lying on the sofa. Not available 05/08/2023 22:07:15 Plan pending imaging results. f/u as needed DWP barriers to care: none Not available 05/08/2023 22:07:20 08/13/2023 [id number] A healthy lifestyle: care instructions Not available 08/13/2023 14:41:19 cough: care instructions Not available 08/13/2023 14:41:19 Mucinex and other OTC cold/cough remedies are fine to take, increase fluids and have good handwashing. Get plenty of rest. Not available 08/13/2023 14:42:52 follow up as needed Not available 08/13/2023 14:41:54 08/22/2023 [id number] A healthy lifestyle: care instructions deldredsmith Not available 08/22/2023 12:00:17 Reason for Referral None Reported. Results Created Date Observation Date Name Description Value Unit Range Abnormal Flag Note LastModifiedBy Organization Detail LastModifiedTime 08/13/2008/13/2023 rapid flu (A+B) Flu A negati ve Not Available In-Office Order Internal Use Only DO Not Attach Compendium DO Not Attach Compendium, Do Not Delete/merge, [id number] 08/13/2023 14:20:27 08/13/20 23 08/13/2023 rapid flu (A+B) Flu B negati ve Not Available In-Office Order Internal Use Only DO Not Attach Compendium DO Not Attach Compendium, Do Not Delete/merge, [id number] 08/13/2023 14:20:27 08/13/20 23 08/13/2023 rapid SARS CoV 2 Ag, QL IA, respi rator y speci men rapid SARS CoV 2 Ag, QL IA, respiratory specimen negati ve Not Available In-Office Order Internal Use Only DO Not Attach Compendium DO Not Attach Compendium, Do Not Delete/merge, [id number] 08/13/2023 14:20:25 08/22/20 23 08/23/2023 NUSWA B VAGIN ITIS PLUS (VG+) atopobium vaginae Modera te - 1 score Not Available [facility] ([facility]) [address], [place], [address], 08/24/2023 11:14:29 08/22/20 23 08/23/2023 NUSWA B VAGIN ITIS PLUS (VG+) bvab 2 High - 2 score abnormal Not Available [facility] ([facility]) [address] [facility], [place], [address], 08/24/2023 11:14:29 08/22/20 23 08/23/2023 NUSWA B VAGIN ITIS PLUS (VG+) megasphaera 1 High - 2 score abnormal Calcu late total score by dalton guillen the 3 indiv idual bacte rial vagin osis (BV) marke r score s toget her. Total score is inter prete d as follo ws: Total score 0-1: Indic ates the absen ce of BV. Total score 2: Indet ermin ate for BV. Addit ional clini piper data shoul d be evalu ated to estab deondre cordero osis. Total score 3-6: Indic ates the prese nce of BV. This test was abdiaziz rodriguez and its perfo pattie e bello lópezri stics deter mined by [facility]. It has not been clear ed or appro braden by the Food and Drug Admin istra tion. Not Available [facility] ([facility]) [address] [place], [address], 08/24/2023 11:14:29 08/22/20 23 08/23/2023 NUSWA B VAGIN ITIS PLUS (VG+) preeti albicans, KRISTIAN Negati ve negati ve Not Available [facility] ([facility]) [address] [place], [address], 08/24/2023 11:14:29 08/22/20 23 08/23/2023 NUSWA B VAGIN ITIS PLUS (VG+) preeti glabrata, KRISTIAN Negati ve negati ve Not Available [facility] ([facility]) [address] [place], [address], 08/24/2023 11:14:29 08/22/20 23 08/24/2023 NUSWA B VAGIN ITIS PLUS (VG+) trich vag by KRISTIAN Positi ve negati ve abnormal Not Available [facility] ([facility]) [address] [place], [address], 08/24/2023 11:14:29 08/22/20 23 08/24/2023 NUSWA B VAGIN ITIS PLUS (VG+) chlamydia trachomatis, KRISTIAN Negati ve negati ve Not Available [facility] ([facility]) [address] [place], [address], 08/24/2023 11:14:29 08/22/20 23 08/24/2023 NUSWA B VAGIN ITIS PLUS (VG+) neisseria gonorrhoeae, KRISTIAN Negati ve negati ve Not Available [facility] ([facility]) [address] [place], [address], 08/24/2023 11:14:29 08/22/20 23 08/24/2023 IGP,C TNGTV ,RFX APTIM A HPV ASCU chlamydia, nuc. acid amp Negati ve negati ve Not Available [facility] ([facility]) [address] [place], [address], 08/25/2023 11:40:34 08/22/20 23 08/24/2023 IGP,C TNGTV ,RFX APTIM A HPV ASCU gonococcus, nuc. acid amp Negati ve negati ve Not Available [facility] ([facility]) [address] [place], [address], 08/25/2023 11:40:34 08/22/20 23 08/24/2023 IGP,C TNGTV ,RFX APTIM A HPV ASCU trich vag by KRISTIAN Positi ve negati ve abnormal Not Available [facility] ([facility]) [address] [facility], [place], [address], 08/25/2023 11:40:34 08/22/20 23 08/25/2023 IGP,C TNGTV ,RFX APTIM A HPV ASCU diagnosis: Commen t NEGAT LASHON FOR INTRA EPITH ELIAL LESIO N OR MALIG MIKAL . TRICH OMONA S VAGIN SANDHYA IS PRESE NT. CELLU LAR BURGESS ES ASSOC IATED WITH INFLA MMATI ON ARE PRESE NT. Not Available [facility] ([facility]) [address] [facility], [place], [address], 08/25/2023 11:40:34 08/22/20 23 08/25/2023 IGP,C TNGTV ,RFX APTIM A HPV ASCU specimen adequacy: Commen t Satis facto ry for evalu ation . Endoc ervic al and/o r squam ous metap lasti c cells (endo cervi piper compo nent) are prese nt. Not Available [facility] ([facility]) [address] [facility], [place], [address], 08/25/2023 11:40:34 08/22/20 23 08/25/2023 IGP,C TNGTV ,RFX APTIM A HPV ASCU clinician provided ICD10: Lakeisha dawn Z01.4 19 N89.8 Not Available [facility] ([facility]) [address] [place], [address], 08/25/2023 11:40:34 08/22/20 23 08/25/2023 IGP,C TNGTV ,RFX APTIM A HPV ASCU performed by: Brina Bay Not Available [facility] ([facility]) [address] [place], [address], 08/25/2023 11:40:34 08/22/20 23 08/25/2023 IGP,C TNGTV ,RFX APTIM A HPV ASCU . . Not Available [facility] ([facility]) [address] [place], [address], 08/25/2023 11:40:34 08/22/20 23 08/25/2023 IGP,C TNGTV ,RFX APTIM A HPV ASCU note: Lakeisha dawn The Pap smear is a scree jayla test desig gladys to aid in the detec tion of rosi ligna nt and malig nant condi tions of the uteri ne cervi x. It is not a diagn ostic proce dure and shoul d not be used as the sole means of detec ting cervi piper cance r. Both false -posi tive and false -nega tive repor ts do occur . Not Available [facility] ([facility]) [address] [place], [address], 08/25/2023 11:40:34 08/22/20 23 08/25/2023 IGP,C TNGTV ,RFX APTIM A HPV ASCU test methodology: Commen t This liqui d based ThinP rep(R ) pap test was scree gladys with the use of an image guide sole velasco. Not Available [facility] ([facility]) [address] [facility], [place], [address], 08/25/2023 11:40:34 08/22/20 23 08/25/2023 IGP,C TNGTV ,RFX APTIM A HPV ASCU . Commen t The HPV DNA refle x crite constantine were not met with this speci men resul t there fore, no HPV testi ng was perfo rmed. Not Available [facility] ([facility]) [address] [facility], [place], [address], 08/25/2023 11:40:34 10/24/19 24 10/26/2023 NUSWA B VAGIN ITIS PLUS (VG+) atopobium vaginae High - 2 score abnormal Not Available [facility] ([facility]) [address] [facility], [place], [address], 10/27/2023 07:17:13 10/24/19 24 10/26/2023 NUA B VAGIN ITIS PLUS (VG+) bvab 2 High - 2 score abnormal Not Available [facility] ([facility]) [address] [place], [address], 10/27/2023 07:17:13 10/24/19 24 10/26/2023 NUSWA B VAGIN ITIS PLUS (VG+) megasphaera 1 High - 2 score abnormal Calcu late total score by dalton g the 3 indiv idual bacte rial vagin osis (BV) marke r score s toget her. Total score is inter prete d as follo ws: Total score 0-1: Indic ates the absen ce of BV. Total score 2: Indet ermin ate for BV. Addit ional clini piper data shoul d be evalu ated to estab deondre a diagn osis. Total score 3-6: Indic ates the prese nce of BV. This test was abdiaziz rodriguez and its perfo rmanc e bello cteri stics deter mined by [facility]. It has not been clear ed or appro braden by the Food and Drug Admin istra tion. Not Available [facility] ([facility]) [address] [place], [address], 10/27/2023 07:17:13 10/24/19 24 10/26/2023 NUSWA B VAGIN ITIS PLUS (VG+) preeti albicans, KRISTIAN Negati ve negati ve Not Available [facility] ([facility]) [address] [place], [address], 10/27/2023 07:17:13 10/24/19 24 10/26/2023 NUSWA B VAGIN ITIS PLUS (VG+) preeti glabrata, KRISTIAN Negati ve negati ve Not Available [facility] ([facility]) [address] [place], [address], 10/27/2023 07:17:13 10/24/19 24 10/26/2023 NUSWA B VAGIN ITIS PLUS (VG+) trich vag by KRISTIAN Negati ve negati ve Not Available [facility] ([facility]) [address] [place], [address], 10/27/2023 07:17:13 10/24/19 24 10/26/2023 NUSWA B VAGIN ITIS PLUS (VG+) chlamydia trachomatis, KRISTIAN Negati ve negati ve Not Available [facility] ([facility]) [address] [place], [address], 10/27/2023 07:17:13 10/24/19 24 10/26/2023 NUSWA B VAGIN ITIS PLUS (VG+) neisseria gonorrhoeae, KRISTIAN Negati ve negati ve Not Available [facility] ([facility]) [address] [place], [address], 10/27/2023 07:17:13 Result Notes None recorded. Problems Name Problem SNOMED Code Status Onset Date Resolution Date Notes Provider Name and Address Organization Details Recorded Time Body mass index 40+ - severely obese 863303524 Active 2019 Not Available [facility] 14:43:59 Genital herpes simplex 94211173 Active 2019 Not Available [facility] 14:43:59 Vitamin D deficiency 81748412 Active 2019 Not Available [facility] 14:43:59 Pain of shoulder region 04557160 Active 2019 Not Available [facility] 14:43:59 Obesity 307229042 Active 2021 Nidia Zamora APN, FNP-C Attn: Accounting ,[address], [place], [address] , [place] [facility] 2 15:29:43 Thoracic back pain 493516272 Active 2021 Nidia Zamora APN, FNP-C Attn: Accounting ,[address] [place], [address] , [place] [facility] 2 10:54:26 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 Nidia Zamora APN [employer]-C Attn: Accounting ,[address] [place], [address] , [place] [facility] 3 11:36:01 Asthma 984405426 Completed 07/31/2017 Lobo krishna [place] - [facility] 7 15:19:24 Contact dermatitis 59425843 Completed 07/31/2017 HUGO Aranda - [facility] 7 15:19:07 Obesity 862769149 Completed 07/31/2017 Nidia Zamora APN [employer] WORK[employer]C Attn: Accounting ,[address] [place], [address] , [place] [facility] 2 15:29:43 Acanthosis nigricans 167999063 Completed 07/31/2017 HUGO Aranda - [facility] 7 15:19:04 Molluscum contagiosu m infection 43360623 Completed 07/31/2017 Lobo krishna [facility] 7 15:19:00 Morbid obesity 199937660 Active Not Available [facility] 14:43:59 Problem Notes None recorded. Procedures Surgical History Date Name Laterality Status Provider Name and Address Organization Details Recorded Time 08/22/2023 Date of Last Pap Smear completed Mirna Maravilla [facility] 08/22/2023 11:27:13 Imaging Results None recorded. Procedure Notes None recorded. Medical Equipment None Reported. Allergies Allergen ID Allergen Name Allergen Category Reaction Reaction Severity Criticality Documentation Date Start Date Code Code System Note Provider Name and Address Organization Details Recorded Time 231255 Substance with sulfonami de structure and antibacte rial mechanism of action (substanc e) medicatio n hives severe Not available 07/31/2017 28327 8003 SNOMED Not Available [facility] 14:43:59 658537 acyclovir medicatio n Not available Not available Not available 02/24/[address] 08:52:46 720124 Product containin g penicilli n (product) medicatio n Not available Not available Not available 02/24/2019 95745 8001 SNOMED Roz Andersen [facility] 9 08:53:33 14150 amoxicill in medicatio n hives moderate Not available 12/06/20162016 723 RxNorm Not Available [facility] 14:43:59 Medications Name Sig Start Date Stop Date Status Note LastModified by Organization Details LastModified Time cimetidin e tab 400mgcime tidine 12/06 completed Not Available Not Available Not Available [facility] 12/06 completed Not Available Not Available Not Available cyclobenz aprine 10 mg tablet Take 1 tablet 3 times a day by oral route as needed. 04/19 completed Not Available Not Available Not Available promethaz ine-DM 6.25 mg-15 mg/5 mL oral syrup TAKE 5ML BY MOUTH EVERY 4 TO 6 HOURS NEEDED FOR COUGH 12/06 completed Not Available Not Available Not Available doxycycli ne hyclate 100 mg capsule TAKE 1 CAPSULE BY MOUTH TWICE A DAY FOR 10 DAYS active Not Available Not Available No t Available azithromy minerva 250 mg tablet 05/08 completed Not Available Not Available Not Available fluconazo le 150 mg tablet Take 1 tablet every day by oral route. 10/24 completed Not Available Not Available Not Available cimetidin e 400 mg tablet Take 1 tablet twice a day by oral route with meals for 30 days. 12/06 completed Not Available Not Available Not Available metronida zole 0.75 % (37.5 mg/5 gram) vaginal gel INSERT 1 APPLICAT ORFUL VAGINALL Y EVERY DAY AT BEDTIME FOR 5 DAYS active Not Available Not Available No t Available metronida zole 500 mg tablet TAKE 1 TABLET BY MOUTH TWICE A DAY FOR 7 DAYS active Not Available Not Available No t Available valacyclo vir 500 mg tablet TAKE 1 TABLET BY MOUTH EVERY DAY active Not Available Not Available No t Available triamcino lone acetonide 0.1 % topical cream APPLY THIN COAT TO AFFECTED AREA TWICE A DAY 08/13 completed Not Available Not Available Not Available Lamisil AT 1 % topical cream Apply small amount to ringworm by topical route 2x daily for 1m. 12/06 completed Not Available Not Available Not Available pantopraz ole 40 mg tablet,de layed release TAKE 1 TABLET BY MOUTH EVERY NIGHT AT BEDTIME 12/06 completed Not Available Not Available Not Available triamcino lone acetonide 0.025 % topical ointment Apply small amount to rash in underarm twice a day by topical route 14 d 12/06 completed Not Available Not Available Not Available mupirocin 2 % topical ointment APPLY 3 TIMES PER DAY FOR 7 DAYS active Not Available Not Available No t Available diclofena c sodium 50 mg tablet,de layed release TAKE 1 TABLET BY MOUTH TWICE A DAY 05/08 completed Not Available Not Available Not Available ibuprofen 600 mg tablet TAKE 1 TABLET BY MOUTH EVERY 6 HOURS NEEDED FOR PAIN 05/11 completed Not Available Not Available Not Available methylpre dnisolone 4 mg tablets in a dose pack TAKE 6 TABLETS ON DAY 1 DIRECTED ON PACKAGE AND DECREASE BY 1 TAB EACH DAY FOR A TOTAL OF 6 DAYS 08/22 completed Not Available Not Available Not Available albuterol sulfate HFA 90 mcg/actua tion aerosol inhaler INHALE 2 PUFFS BY MOUTH EVERY 4 HOURS NEEDED active Not Available Not Available No t Available ondansetr on 4 mg disintegr ating tablet ALLOW 1 TABLET TO DISSOLVE BY MOUTH EVERY 8 HOURS NEEDED FOR NAUSEA/V OMITING 05/08 completed Not Available Not Available Not Available cefdinir 300 mg capsule Take 1 capsule every 12 hours by oral route. 01/30 completed Not Available Not Available Not Available naproxen 500 mg tablet TAKE 1 TABLET BY MOUTH TWICE A DAY NEEDED 05/11 completed Not Available Not Available Not Available Bactrim DS 800 mg-160 mg tablet Take 1 tablet twice a day by oral route for 10 days. 07/31 completed Not Available Not Available Not Available NuvaRing 0.12 mg-0.015 mg/24 hr vaginal Insert 1 vaginal ring every month by vaginal route. active Not Available Not Available No t Available azithromy minerva 500 mg tablet TAKE 2 TABLETS BY MOUTH 1 DOSE 05/11 completed not taking Not Available Not Available Not Available cyclobenz aprine 5 mg tablet TAKE 1 TABLET BY MOUTH THREE TIMES A DAY NEEDED 05/11 completed not taking Not Available Not Available Not Available acyclovir 05/11 completed Not Available Not Available Not Available Protonix 05/08 completed [facility] Not Available Not Available Not Available Lamisil AT 1 % topical gel Apply by topical route to ringworm bid for 1m. 12/06 completed Not Available Not Available Not Available Vitals Date Recorded Body height Body mass index (BMI) Body weight Respiratory rate Heart rate Oxygen saturation Oxygen saturation in Arterial blood by Pulse oximetry Systolic blood pressure Diastolic blood pressure Provider Name and Address Organization Details Last Updated DateTime 3 152.4 cm 47.9 kg/m2 256263. 18 g 16 /min 71 /min 98 % 98 % 132 mm[Hg] 88 mm[Hg] Mirna Maravilla [place] - [facility] 3 14:24:00 Date Recorded Body height Body mass index (BMI) Body weight Oxygen saturation Oxygen saturation in Arterial blood by Pulse oximetry Heart rate Respiratory rate Body temperature Systolic blood pressure Diastolic blood pressure Provider Name and Address Organization Details Last Updated DateTime 3 152.4 cm 48.2 kg/m2 315044. 32 g 98 % 98 % 78 /min 16 /min 98 [degF] 136 mm[Hg] 82 mm[Hg] Emily Garcia [facility] 3 11:17:49 Date Recorded Body height Body mass index (BMI) Body weight Oxygen saturation Oxygen saturation in Arterial blood by Pulse oximetry Heart rate Respiratory rate Body temperature Systolic blood pressure Diastolic blood pressure Provider Name and Address Organization Details Last Updated DateTime 3 152.4 cm 49 kg/m2 907699. 68 g 98 % 98 % 90 /min 16 /min 98 [degF] 120 mm[Hg] 80 mm[Hg] SHREYAS Reid [facility] 3 14:17:08 Date Recorded Body height Body mass index (BMI) Body weight Heart rate Respiratory rate Systolic blood pressure Diastolic blood pressure Provider Name and Address Organization Details Last Updated DateTime 3 152.4 cm 48.9 kg/m2 788249. 49 g 71 /min 16 /min 141 mm[Hg] 85 mm[Hg] Mirna Maravilla [facility] 3 11:34:50 Date Recorded Body height Body mass index (BMI) Body weight Heart rate Systolic blood pressure Diastolic blood pressure Provider Name and Address Organization Details Last Updated DateTime 4 152.4 cm 49.3 kg/m2 010131. 08 g 74 /min 125 mm[Hg] 79 mm[Hg] Ekaterina Ledesma [place] [facility] 4 12:02:29 Social History Question Answer Notes LastModified by Organization Details LastModified Time Tobacco Smoking Status Former Smoker Emily Garcia [facility] 05/08/2023 11:16:13 Do You Have An Advance Directive? No Information not available 03/17/2020 What Is Your Level Of Alcohol Consumption? Occasional Socially Information not available 05/11/2021 Animal Exposure? No [email or web address] Informa tion not available 01/01/2015 Do You Wear A Helmet When Biking? No [email or web address] Information not available 01/01/2015 Are You Blind Or Do You Have Difficulty Seeing? No Information not available 05/11/2021 Are You Or Have You Been Involved With Bullying? No [email or web address] Information not available 01/01/2015 What Is Your Level Of Caffeine Consumption? Occasional [email or web address] Information not available 10/04/2022 How Much Tobacco Do You Chew? None Information not available 02/24/2019 What Type Of Flight Crew Ordnanceman Do You Use? None [email or web address] Information not available 01/01/2015 In The 14 Days Before Symptom Onset, Have You Had Close Contact With A Laboratory-confi rmed COVID-19 While That Case Was Ill? No Information not available 03/17/2020 In The 14 Days Before Symptom Onset, Have You Had Close Contact With A Person Who Is Under Investigation For COVID-19 While That Person Was Ill? No Information not available 03/17/2020 Have You Been To An Area Known To Be High Risk For COVID-19? No Information not available 03/17/2020 Are You Currently Employed? Yes Information not available 05/11/2021 Are You Deaf Or Do You Have Serious Difficulty Hearing? No Information not available 05/11/2021 What Type Of Diet Are You Following? REGULAR Picky [email or web address] Information not available 01/01/2015 Which Illicit Or Recreational Drugs Have You Used? Denies Information not available 02/24/2019 Do You Or Have You Ever Used E-cigarettes Or Vape? Former User Of Electronic Cigarettes Quit 12/2022 [email or web address] Information not available 05/08/2023 Education 12 Some College Information not available 02/24/2019 What Is Your Occupation? [email or web address] Information not available 08/13/2023 Have There Been Any Changes To Your Family Or Social Situation? No [email or web address] Information not available 01/01/2015 What Is The Fluoride Status Of Your Home? Fluoridated Information not available 12/06/2016 Are There Any Guns Present In Your Home? No [email or web address] Information not available 01/01/2015 Hard Of Hearing Or Deaf In One Or Both Ears? No Information not available 03/17/2020 What Is Your Home Situation? Both Parents Mom, Dad, And Sisters [email or web address] Information not available 12/06/2016 Do You Use Insect Repellent Routinely? Yes [email or web address] Information not available 01/01/2015 Legally Blind In One Or Both Eyes? No Information not available 03/17/2020 Car Seat Type Or Seat Belt? Seat Belt [email or web address] Information not available 01/01/2015 Parent Involvement? Both Parents Involved [email or web address] Information not available 01/01/2015 Riding In Car Front Seat? Yes [email or web address] Information not available 01/01/2015 Marital Status Single Informatio n not available 02/24/2019 What Was The Date Of Your Most Recent Tobacco Screening? 08/22/2023 [email or web address] Information not available 08/22/2023 How Many Children Do You Have? 0 Information not available 05/11/2021 What Is Your Parents' Marital Status? [email or web address] Information not available 01/01/2015 Performs Monthly Self-breast Exam? No Information not available 03/17/2020 Pool Exposure No [email or web address] Informatio n not available 01/01/2015 Do You Use Protection During Sex? Always Information not available 05/11/2021 What Is Your Relationship Status? Single Information not available 05/11/2021 Do You Use Your Seat Belt Or Car Seat Routinely? Yes Information not available 05/11/2021 Seat Belts Used Routinely Yes Information not available 02/24/2019 Are You Sexually Active? Yes Information not available 05/11/2021 Do You Have Any Siblings? 2 Sister Information not available 01/01/2015 Smoke Alarm In Home Yes Information not available 03/17/2020 Do You Have Smoke And Carbon Monoxide Detectors In Your Home? Yes [email or web address] Information not available 01/01/2015 At What Age Did You Start Smoking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 discharge Breast:No breast pain; No breast lump; No nipple discharge Sexual complaints:No sexual complaints; No pain during intercourse; Normal libido Menopausal Symptoms:No menopausal symptoms; Normal vaginal lubrication Psychological symptoms:No depression; No anxiety; No PMDD Preventive measures:Encourage self breast examination; Encourage regular exercise; Encourage no tobacco use; Encourage regular mammograms starting age 40; Followed with Q3 year pap smear and high risk HPV typing 23 yo fe here for felice pos trich 08/22/23- first pap 08/22/23 wnl- hx smoking, hsv- on nuvaring, regular monthly cycles, no complaints FAUSTINO Hart- Attn: Accounting[address] [place], [address], [facility] 10/24/2023 12:23:17 OBGyn Episode No OBEpisode recorded.
[2025-01-23 09:16] VITALS: BP 166/93; PULSE 66; RESP 24; TEMP 36.7; O2SAT 100
--- NOTE | 2025-01-23 09:19 | ECG_ITS ---
Test Date: 2025-01-23 09:29:36 Measurements Intervals [place] Rate: 60 P: 65 FL: 143 QRS: 35 QRSD: 79 T: 33 QT: 416 QTc: 418 Interpretive Statements SINUS RHYTHM WITH SINUS ARRHYTHMIA No previous ECG available for comparison Electronically Signed On 01-23-2025 12:18:26 CDT by Steph Barnes M.D.
--- NOTE | 2025-01-23 09:19 | ED.DIZZY ---
HPI - Dizziness General Chief Complaint: Dizziness Stated Complaint: dizzy and nauseous Time Seen by Provider: 01/23/25 09:13 Source: patient Mode of arrival: ambulatory Limitations: no limitations History of Present Illness HPI Narrative: Patient is 24 years old female came from home by private car complaining of sudden onset of dizziness when she got out of the bed and sat at the edge of it this morning cane. Everything was swinging and spinning associated with nausea. Patient have to close her eye to feel better. She denies any fever, chills, chest pain, shortness of breath, headache or focal neuro deficit. Patient is healthy otherwise, does not take medicine at home. MD elicited complaint: dizziness Onset (ago): hour(s) Timing: sudden onset Severity: moderate Description: room spinning History of similar symptoms: No Exacerbating factors: movement/ambulation, change in body position, keeping eyes open, standing and position/lying down Relieving factors: remaining still and keeping eyes closed Associated symptoms: nausea Associated neuro symptoms: vision changes Related Data Allergies Allergy/AdvReac Type Severity Reaction Status Date / Time amoxicillin Allergy Unknown HIVE LIKE Verified 01/23/25 09:21 RASH sulfamethoxazole Allergy Unknown HIVES Verified 01/23/25 09:21 trimethoprim Allergy Unknown HIVES Verified 01/23/25 09:21 Penicillins Allergy Unknown Verified 01/23/25 09:21 Review of Systems Review of Systems: All systems reviewed & are unremarkable except as noted in HPI and below PMFSH Past Medical History Medical History HSV (herpes simplex virus) infection Type 2 Family History Family History Father Asthma Diabetes mellitus Hypertension Heart problem Mother Cancer Diabetes mellitus Hypertension Anxiety Heart problem Sibling Asthma Diabetes mellitus Anxiety Social History Social History Smoking status: Never smoker Alcohol intake: current Substance use: current Substance use type: marijuana Exam Narrative: General appearance: Well-developed, well-nourished Skin: Normal color Head: Normocephalic, nontraumatic Eyes: Clear conjunctiva ENT: Oropharynx normal, ears normal, nose normal Neck: Supple, nontender Chest and respiratory: Airway patent, no respiratory distress, no accessory muscle use Heart: Regular rate/rhythm Abdomen: Soft, nontender, no organomegaly, quiet bowel sounds Vascular: Normal peripheral pulses, normal capillary refill. Musculoskeletal: Normal range of motion, nontender back Neurologic: Alert and oriented ?3, STEWARD/STEWARDESS DECK is normal as tested, no gross motor deficit Course Vital Signs Vital signs: Vital Signs Temperature 36.7 C 01/23/25 09:16 Pulse Rate 66 01/23/25 09:16 Respiratory Rate 24 H 01/23/25 09:16 Blood Pressure 166/93 H 01/23/25 09:16 Pulse Oximetry 100 01/23/25 09:16 Oxygen Delivery Room Air 01/23/25 09:16 Temperature 36.7 C 01/23/25 09:16 Pulse Rate 79 01/23/25 12:05 Respiratory Rate 22 H 01/23/25 12:05 Blood Pressure 152/73 H 01/23/25 12:05 Pulse Oximetry 100 01/23/25 12:05 Oxygen Delivery Room Air 01/23/25 09:16 MDM - Dizziness MDM Narrative Medical decision making narrative: Patient presents with vertigo-like symptoms Vital signs showing blood pressure 166/93, patient does not have history of hypertension, respiratory rate 24 otherwise within normal limit Physical examination showing obese patient, complaining of feeling dizzy and everything spinning Differential diagnosis include benign positional vertigo, electrolyte imbalance, dehydration, urinary tract infection, intracranial abnormality Blood workup today includes CBC, CMP, coag showed no significant abnormalities Urinalysis showed no evidence of infection Chest x-ray showed no abnormality EKG on arrival showed normal sinus rhythm otherwise normal EKG Diagnosis benign positional vertigo Discharged on Antivert, Zofran and Valium The pt was discharged to home.the pt,s condition upon discharge was fair,education was provided to the pt in reference to the final impression,discharge study results,treatment,prognosis and need for follow up . Differential Diagnosis Differential diagnosis: Likely other (As above) Medical Records Attestation: I reviewed the patient's medical records. Lab Data Attestation: I reviewed the patient's lab results. 01/23/25 09:31 01/23/25 09:31 Labs: Lab Results 01/23/25 01/23/25 01/23/25 Range/Units 09:23 09:31 10:21 WBC 6.3 (4.5-10.0) K/mm3 RBC 4.28 (4.2-5.4) M/mm3 Hgb 12.4 (12.0-15.0) g/dL Hct 39.1 (37.0-47.0) % MCV 91.4 (80-100) fl MCH 29.0 (26-34) pg MCHC 31.7 L (32-36) g/dl RDW 13.4 (11.5-14.5) % Plt Count 313 (150-375) k/mm3 MPV 10.2 (7.4-10.4) fl Immature Gran % (Auto) 0.3 (0-0.5) % Neut % (Auto) 49.5 (45.5-73.1) % Lymph % (Auto) 36.4 (18.3-44.2) % Edmunds % (Auto) 9.7 H (2.6-8.5) % Eos % (Auto) 3.8 (0-4.4) % Baso % (Auto) 0.3 (0.2-1.2) % Lymph # (Auto) 2.30 (0.9-3.2) K/mm3 Edmunds # (Auto) 0.6 (0.1-0.6) K/mm3 Eos # (Auto) 0.2 (0-0.3) K/mm3 Baso # (Auto) 0.0 (0.0-0.1) K/mm3 Abs Immat Gran (auto) 0.02 (0.00-0.031) K/mm3 Absolute Neuts (auto) 3.1 (1.3-6.7) K/mm3 Absolute Nucleated RBC 0.000 (0.0-0.012) K/mm3 Nucleated RBC % 0.0 (0.0-0.2) % Sodium 137 (137-145) mmol/L Potassium 4.0 (3.4-5.0) mmol/L Chloride 105 (98-107) mmol/L Carbon Dioxide 24 (22-30) mmol/L Anion Gap 8 (4-12) mmol/L BUN 11 (7-17) mg/dL Creatinine 0.85 (0.7-1.0) mg/dL Estim Creat Clear Calc 109 ml/min Estimated GFR > 60 (59 - ) Glucose 101 (65-110) mg/dL POC Capillary Glucose 97 (65-105) mg/dl Calcium 9.2 (8.4-10.2) mg/dL Total Bilirubin 0.6 (0.2-1.3) mg/dL AST 24 (14-36) U/L ALT 14 (6-35) U/L Alkaline Phosphatase 101 (38-126) U/L Total Protein 8.0 (6.3-8.2) g/dL Albumin 4.1 (3.5-5.1) g/dL TSH 2.120 (0.465-4.680) uIU/mL Urine Color Yellow (Yellow) Urine Appearance Clear (Clear) Urine pH 6.5 (5.0-9.0) Ur Specific [place] 1.013 (1.001-1.035) Urine Protein Negative (Negative) mg/dL Urine Glucose (UA) Negative (Negative) mg/dL Urine Ketones Trace H (Negative) mg/dL Ur Blood (Man) Negative (Negative) Urine Nitrate Negative (Negative) Urine Bilirubin Negative (Negative) Urine Urobilinogen 0.2 (<2.0) mg/dL Leukocyte Esterase Rfl Trace H (Negative) EDNA/UL Urine RBC 0-2 (0-2) /hpf Urine WBC 0-5 (0-3) /hpf Ur Squamous Epith Cells Occasional (Few) /hpf Urine Bacteria None seen /hpf Urine Casts 0-2 POC Urine HCG, Qual (Negative) Urine Opiates Screen Negative (Negative) Urine Methadone Screen Negative (Negative) Ur Barbiturates Screen Negative (Negative) Ur Phencyclidine Scrn Negative (Negative) Ur Amphetamine Screen Negative (Negative) U Benzodiazepines Scrn Negative (Negative) Urine Cocaine Screen Negative (Negative) U Cannabinoids Screen Positive A (Negative) 01/23/25 Range/Units 10:25 WBC (4.5-10.0) K/mm3 RBC (4.2-5.4) M/mm3 Hgb (12.0-15.0) g/dL Hct (37.0-47.0) % MCV (80-100) fl MCH (26-34) pg MCHC (32-36) g/dl RDW (11.5-14.5) % Plt Count (150-375) k/mm3 MPV (7.4-10.4) fl Immature Gran % (Auto) (0-0.5) % Neut % (Auto) (45.5-73.1) % Lymph % (Auto) (18.3-44.2) % Edmunds % (Auto) (2.6-8.5) % Eos % (Auto) (0-4.4) % Baso % (Auto) (0.2-1.2) % Lymph # (Auto) (0.9-3.2) K/mm3 Edmunds # (Auto) (0.1-0.6) K/mm3 Eos # (Auto) (0-0.3) K/mm3 Baso # (Auto) (0.0-0.1) K/mm3 Abs Immat Gran (auto) (0.00-0.031) K/mm3 Absolute Neuts (auto) (1.3-6.7) K/mm3 Absolute Nucleated RBC (0.0-0.012) K/mm3 Nucleated RBC % (0.0-0.2) % Sodium (137-145) mmol/L Potassium (3.4-5.0) mmol/L Chloride (98-107) mmol/L Carbon Dioxide (22-30) mmol/L Anion Gap (4-12) mmol/L BUN (7-17) mg/dL Creatinine (0.7-1.0) mg/dL Estim Creat Clear Calc ml/min Estimated GFR (59 - ) Glucose (65-110) mg/dL POC Capillary Glucose (65-105) mg/dl Calcium (8.4-10.2) mg/dL Total Bilirubin (0.2-1.3) mg/dL AST (14-36) U/L ALT (6-35) U/L Alkaline Phosphatase (38-126) U/L Total Protein (6.3-8.2) g/dL Albumin (3.5-5.1) g/dL TSH (0.465-4.680) uIU/mL Urine Color (Yellow) Urine Appearance (Clear) Urine pH (5.0-9.0) Ur Specific [place] (1.001-1.035) Urine Protein (Negative) mg/dL Urine Glucose (UA) (Negative) mg/dL Urine Ketones (Negative) mg/dL Ur Blood (Man) (Negative) Urine Nitrate (Negative) Urine Bilirubin (Negative) Urine Urobilinogen (<2.0) mg/dL Leukocyte Esterase Rfl (Negative) EDNA/UL Urine RBC (0-2) /hpf Urine WBC (0-3) /hpf Ur Squamous Epith Cells (Few) /hpf Urine Bacteria /hpf Urine Casts POC Urine HCG, Qual Negative (Negative) Urine Opiates Screen (Negative) Urine Methadone Screen (Negative) Ur Barbiturates Screen (Negative) Ur Phencyclidine Scrn (Negative) Ur Amphetamine Screen (Negative) U Benzodiazepines Scrn (Negative) Urine Cocaine Screen (Negative) U Cannabinoids Screen (Negative) Imaging Data Radiologist's impression: Impressions Chest X-Ray 01/23/25 09:56 Impression: Normal chest. ECG Data EKG #1: Attestation: I personally reviewed and interpreted this ECG as follows: ECG completion date: 01/23/25 ECG completion time: 09:59 Interpretation: Normal sinus rhythm at 60 beats per minute with sinus arrhythmia, no previous EKG available for comparison Critical Care Time Critical Care Time Critical Care Time: No Discharge Plan Discharge Clinical Impression: Benign paroxysmal positional vertigo Patient Disposition: Home Condition: Stable Instructions: Benign Paroxysmal Positional Vertigo (ED) Additional Instructions: Return if symptoms are worsening , call your family physician for appointment, take Tylenol as as needed for aches and pain, continue home medications. Patient Language: Serbian Prescriptions: New meclizine [Antivert] 25 mg tablet,chewable 25 mg PO TID Qty: 20 0RF ondansetron HCl 4 mg tablet 4 mg PO Q4H Qty: 10 0RF Rx Instructions: 1st dose 1-2 hr before radiation diazepam [Valium] 5 mg tablet 5 mg PO BID PRN (Reason: vertigo) Qty: 10 0RF No Action promethazine-DM 6.25-15 mg/5 mL syrup 5 ml PO Q4-6H PRN (Reason: cough) Qty: 120 0RF methylprednisolone [Medrol (Michael)] 4 mg tablets,dose pack See Rx Instructions .ROUTE .COMPLEX Qty: 21 0RF Rx Instructions: orally per package directions albuterol sulfate 90 mcg/actuation HFA aerosol inhaler 2 puff INHALATION QID PRN (Reason: shortness of breath or wheezing) Qty: 8.5 0RF azithromycin 250 mg tablet See Rx Instructions .ROUTE .COMPLEX Qty: 6 0RF Rx Instructions: For 250 mg dose pack: take 500 mg today (day 1), then 250 mg for 4 days (days 2-5) valacyclovir 500 mg tablet 500 mg PO DAILY Qty: 90 0RF etonogestrel-ethinyl estradiol [NuvaRing] 0.12-0.015 mg/24 hr ring 1 vag ring vaginal ONCE Qty: 9 2RF Rx Instructions: Insert ring vaginally X 3 weeks then remove. Insert new ring one week later ondansetron 4 mg tablet,disintegrating 4 mg PO Q8H PRN (Reason: nausea and vomiting) Qty: 7 0RF etonogestrel-ethinyl estradiol [NuvaRing] 0.12-0.015 mg/24 hr ring 1 vag ring vaginal .COMPLEX Qty: 1 0RF Rx Instructions: 1 vag ring vaginal for 3 weeks; Follow-up/Referrals: Sharon,Nidia Osorio APN [Primary Care Provider] - Stand Alone Forms: Work/School Release IP
[2025-01-23 09:20] VITALS: PULSE 66
[2025-01-23 09:25] LABS: Glucose Point of Care 97 mg/dl (65-105)
[2025-01-23 09:40] LABS: Basophils Percent Auto 0.3 % (0.2-1.2); Eosinophils Absolute Auto 0.2 K/mm3 (0-0.3); Eosinophils Percent Auto 3.8 % (0-4.4); Hematocrit 39.1 % (37.0-47.0); Hemoglobin 12.4 g/dL (12.0-15.0); Immature Granulocyte Absolute 0.02 K/mm3 (0.00-0.031); Immature Granulocyte Percent A 0.3 % (0-0.5); Lymphocytes Percent Auto 36.4 % (18.3-44.2); Mean Corpuscular HGB Conc 31.7 g/dl (32-36); Mean Corpuscular Volume 91.4 fl (80-100); Mean Platelet Volume 10.2 fl (7.4-10.4); Monocytes Absolute Auto 0.6 K/mm3 (0.1-0.6); Monocytes Percent Auto 9.7 % (2.6-8.5); Neutrophils Absolute Auto 3.1 K/mm3 (1.3-6.7); Neutrophils Percent Auto 49.5 % (45.5-73.1); Platelet Count Result 313 k/mm3 (150-375); Red Blood Count 4.28 M/mm3 (4.2-5.4); Red Cell Distribution Width 13.4 % (11.5-14.5); White Blood Count 6.3 K/mm3 (4.5-10.0)
[2025-01-23 09:50] LABS: Alanine Aminotransferase 14 U/L (6-35); Albumin Level 4.1 g/dL (3.5-5.1); Alkaline Phosphatase 101 U/L (38-126); Anion Gap 8 mmol/L (4-12); Aspartate Amino Transferase 24 U/L (14-36); Bilirubin,Total 0.6 mg/dL (0.2-1.3); Blood Urea Nitrogen 11 mg/dL (7-17); Calcium 9.2 mg/dL (8.4-10.2); Carbon Dioxide 24 mmol/L (22-30); Chloride 105 mmol/L (98-107); Estimated CRCL calculation 109 ml/min; Estimated Glomerular Filt Rate > 60; Glucose 101 mg/dL (65-110); Sodium 137 mmol/L (137-145)
--- OUTSIDE RECORDS SUMMARY | 2025-01-23 09:51 | XMS_ITS | Clinical Summary ---
Author Organization [facility] Address [address] [place] [address] Phone Care Team Providers Care Caddymaster Name Role Phone Nidia Herrera APRN, CNP Primary Care Provider [phone] Active Problems Problem Noted Date Diagnosed Date [...] age to complete this topic Insurance MEDICAID [place] Care Teams Caddymaster Relationship Specialty Start Date End Date Nidia Herrera APRN, FUR MACHINE OPERATOR [address] [place] [address] PCP - General Family Medicine 10/04/22
[2025-01-23 10:06] VITALS: BP 153/92; BP 157/107; PULSE 59; PULSE 64
[2025-01-23] MEDS: diazePAM (*CRX) 5 MG TABLET PO (10:22)
[2025-01-23] MEDS: ONDANSETRON INJ 4 MG/2 ML VIAL IV PUSH (10:22)
[2025-01-23] MEDS: MECLIZINE HCL 25 MG TABLET PO (10:22)
[2025-01-23 10:26] VITALS: BP 153/92; PULSE 61; RESP 18; O2SAT 99
[2025-01-23 10:26] LABS: BEDSIDEPREGUCG Negative (Negative)
[2025-01-23 10:40] LABS: Add Urine Microscopic? YES; Appearance Urine Clear (Clear); Bacteria Urine None Seen /hpf; Bilirubin Urine Negative (Negative); Blood Urine Negative (Negative); Color Urine Yellow (Yellow); Glucose Urine UA Negative (Negative); Ketones Urine Trace mg/dL (Negative); Leukocyte Esterase Ur Trace LEU/UL (Negative); Nitrate Urine Negative (Negative); Non Pathogenic Casts 0-2; Protein Urine Negative (Negative); RBC Urine 0-2 /hpf (0-2); Specific Grav Ur 1.013 (1.001-1.035); Squamous Epithelial Cell Urine Occasional /hpf (Few); Urobilinogen Urine 0.2 mg/dL (<2.0); WBC Urine 0-5 /hpf (0-3); pH Urine 6.5 (5.0-9.0)
[2025-01-23 10:53] LABS: Amphetamine Screen Urine Negative (Negative); Barbiturate Screen Urine Negative (Negative); Benzodiazepines Screen Urine Negative (Negative); Cannabinoid Screen Urine Positive (Negative); Cocaine Screen Urine Negative (Negative); Methadone Screen Urine Negative (Negative); Opiate Screen Urine Negative (Negative); Phencyclidine Screen Urine Negative (Negative)
[2025-01-23 12:05] VITALS: BP 152/73; PULSE 79; RESP 22; O2SAT 100
== END 2025-01-23 13:39 | disposition home or self-care (01) ==
PROVIDERS: Emergency Provider Emergency Medicine; PCP Nurse Practitioner Family
DX: H81.10 Benign paroxysmal vertigo, unspecified ear (principal)
CPT/HCPCS: 36415; 71045; 80053; 80307; 81001; 81025; 82948; 84443; 85025; 93005; 96374; 99284; A9270; J2405